=== PATIENT | female | born 1935 | race Caucasian/White ===

== ENCOUNTER → 2016-10-28 | Outpatient (CLI) | payer OTHER | LOC: MAMO 10:16 | DX: Z12.31 Encounter for screening mammogram for malignant neoplasm of breast (principal) | CPT/HCPCS: G0202 ==

== ENCOUNTER → 2016-11-21 | Outpatient (CLI) | payer OTHER | LOC: KOH-I 14:00 | DX: M81.0 Age-related osteoporosis without current pathological fracture (principal); M85.88 Other specified disorders of bone density and structure, other site; M85.852 Other specified disorders of bone density and structure, left thigh | CPT/HCPCS: 77080 ==

== ENCOUNTER → 2020-07-08 | Outpatient (CLI) | payer OTHER ==
[~2020-07-08] MED LIST: CLEOCIN HCL300 MG PO; ECOTRIN81 MG PO; INVANZ 1 GM VIAL1 GM IV; KEFLEX CAP 500500 MG PO; LEVAQUIN500 MG PO; MOBIC7.5 MG PO; OMNICEF 300 MG300 MG PO; PREDNISONE 50 M50 MG PO; SYNTHROID88 MCG PO; VANCOMYCIN HCL1 GM IV; VENTOLIN HFA 66.7 GM INH
[2020-07-08 11:07] LABS: BUN/CREATININE RATIO 25 (0-10)
== END ==
LOC: US 09:30
PROVIDERS: Internal Medicine Nephrology
DX: N17.9 Acute kidney failure, unspecified (principal); E03.9 Hypothyroidism, unspecified; E78.5 Hyperlipidemia, unspecified; N39.0 Urinary tract infection, site not specified
CPT/HCPCS: 36415; 80053; 81001; 82550; 82570; 84156; 84443; 87077; 87086; 87186; 89050

== ENCOUNTER → 2020-11-11 | Outpatient (CLI) | payer OTHER | LOC: CT 10:00 | DX: C83.39 Diffuse large B-cell lymphoma, extranodal and solid organ sites (principal); K76.0 Fatty (change of) liver, not elsewhere classified; M51.37 Other intervertebral disc degeneration, lumbosacral region | CPT/HCPCS: 36415; 71260; 82565; 84520; Q9967 ==

== ENCOUNTER → 2021-06-14 | Outpatient (CLI) | payer OTHER | LOC: CT 05-20 09:00 | DX: C83.39 Diffuse large B-cell lymphoma, extranodal and solid organ sites (principal); N28.9 Disorder of kidney and ureter, unspecified; K76.9 Liver disease, unspecified | CPT/HCPCS: 36415; 71260; 82565; Q9967 ==

== ENCOUNTER → 2021-12-16 | Outpatient (CLI) | payer OTHER ==
[2021-12-16 10:30] LABS: HEMOGLOBIN 13.9 gm/dl (12.3-15.3); RED BLOOD COUNT 4.66 M/UL (4.00-5.10); WHITE BLOOD COUNT 7.2 K/UL (4.5-11.0)
[2021-12-16 10:59] LABS: BUN/CREATININE RATIO 26 (0-10)
== END ==
LOC: CT 10:02
PROVIDERS: Internal Medicine Hematology & Oncology
DX: C83.39 Diffuse large B-cell lymphoma, extranodal and solid organ sites (principal); K76.0 Fatty (change of) liver, not elsewhere classified; K59.00 Constipation, unspecified
CPT/HCPCS: 36415; 71260; 80053; 83615; 85025